=== PATIENT | male | born 1955 | race Caucasian/White ===

== ENCOUNTER 2019-08-28 11:13 | Outpatient (CLI) | payer OTHER, SELFPAY ==
--- NOTE | 2019-08-28 11:20 | CT_ITS ---
WS: [id number] CT CHEST, ABDOMEN AND PELVIS WITH CONTRAST. HISTORY: RECTAL CANCER TECHNIQUE: Contiguous 5 mm axial imaging performed through the chest, abdomen and pelvis with IV cont rast, oral contrast has been provided. Coronal and sagittal reformats chest. Coronal and sagittal ref ormats through the abdomen and pelvis. All CT scans at [facility] use at least one of the se dose optimization techniques: automated exposure control; mA and/or kV adjustment per patient size (includes targeted exams where dose is matched to clinical indication); or iterative reconstruction. CONTRAST: Omnipaque 300; 95 mL IV. DLP: 1508.0 mGy.cm COMPARISON: 04/03/[address]: Mild pulmonary hyperinflation. No pulmonary nodule or mass. No pericardial or pleural effus ion. Mild atherosclerosis aorta. No mediastinal or hilar adenopathy. Small hiatal hernia. Mild increa se in the thoracic kyphosis. No osteoblastic or osteolytic bone disease. Lipoma in the soft tissues o f the posterior upper LEFT thorax. Abdomen CT: Mild to moderate diffuse hepatic steatosis. No enhancing masses. No bile duct dilatation. Liver is slightly enlarged. Spleen, pancreas and adrenal glands are negative. Normally distended gal lbladder. No common bile duct dilatation. Kidneys are in normally enhancing. Extrarenal pelvis on the LEFT. Atherosclerosis aorta. No ascites or adenopathy. Row of surgical sutures in the central upper abdomen. There is additional postsurgical sutures in the distal small bowel and at the rectum. The ap pendix is not identified. No GI tract obstruction. Pelvic CT: No free fluid or adenopathy. Normally distended urinary bladder. No osteoblastic or osteolytic bone disease. CT/CT chest abd pel w con* IMPRESSION: 1. No evidence for metastatic disease to the chest, abdomen or pelvis. 2. Hepatic steatosis and hepatomegaly. 3. No pulmonary nodules. 4. Postsurgical changes in the central small bowel and RIGHT lower quadrant an d at the rectum are stable.
[2019-08-28] MEDS: iohexol 300 mg/mL 50 mL Btl IV (11:34)
[2019-08-28 12:11] LABS: Blood Urea Nitrogen 13 mg/dL (8-23); Glomerular Filtration Rate 84.7 mL/min (90-130)
[2019-08-28] MEDS: iohexol 300 mg/mL 100 mL Btl IV (13:00)
== END 2019-08-28 11:14 | disposition home or self-care (01) ==
LOC: RAD 11:16
PROVIDERS: PCP Nurse Practitioner Family; Visit Provider Internal Medicine Medical Oncology
DX: C20 Malignant neoplasm of rectum (principal); K76.0 Fatty (change of) liver, not elsewhere classified; R16.0 Hepatomegaly, not elsewhere classified
CPT/HCPCS: 36415; 71260; 74177; 82565; 84520

== ENCOUNTER 2019-09-11 08:53 | Outpatient (CLI) | payer OTHER, SELFPAY ==
--- NOTE | 2019-09-11 09:31 | ONC FU_ITS ---
Dr. Bro Patient Follow-Up Note Patient: Noman Morales Unit #: [id number]: [id number] Dicatated By: Rudy Bro M.D.Date of Visit:Sep 11, 2019 Onc Med Follow-up/Prog Note Chief Complaint: Rectal cancer. 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 He had presented with complaints of thinner bowel movements associated with intermittent blood in the stool. He underwent colonoscopy on 01/30/14 which showed a partially obstructing, medium sized, malignant appearing circumferential mass in the distal sigmoid/rectosigmoid colon. The proximal end of the tumor was estimated at about 17 cm and the distal end at 13-14 cm from the anal verge. Also noted were multiple sessile polyps from the mid transverse colon to the proximal descending colon. Some of these apparently were felt to have been only partially excised. Pathology of the rectosigmoid mass showed low grade (grade 1-2/4) adenocarcinoma. Pathology on the polyps included a benign polyp with slight adenomatous change, adenomatous polyp fragments, and a hyperplastic polyp. CT abdomen/pelvis showed wall thickening of the distal third sigmoid colon extending for a length of 8.8 cm with possible involvement of the rectosigmoid junction and supralevator rectum. There was no appreciable pericolonic or perirectal fat stranding, but there was a small nodule adjacent to the left distal sigmoid measuring 4.4 mm which was suspicious for a possible metastatic nodule. Also noted was a borderline enlarged cm hepatis lymph node measuring 10 mm. There was no other adenopathy noted. The left hepatic lobe showed a 4-5 mm low attenuation focus which was felt to be too small to characterize. At the time of my initial evaluation with him, there was uncertainty about the location of the lesion, specifically whether it was above or extended below the peritoneal reflection. He was referred to Dr. James Tavera in [place]. He underwent repeat colonoscopy with endorectal ultrasound staging on 02/27/14. As before, he was noted to have multiple polyps. A set of 5 polyps in the 4-6 mm size range were removed with cold exact dose snare from the transverse colon. A 30 x 15 mm sessile polyp in the descending colon at 55 cm was removed with a combination of hot snare and cold exact dose snare, and a 10 mm polyp was removed with hot snare from the descending colon at 45 cm. Pathology in all of these was consistent with adenomatous polyp. The rectal tumor was noted to extend to within 10 cm of the anal verge. By ultrasound it showed intubation into the perirectal fat consistent with T3 involvement. A single 10.4 mm ovoid hypoechoic lymph node versus tumor nodule was noted, consistent with node positive disease. Hence, his tumor was confirmed to be in the rectum and his clinical staging was T3, N1. He was the given neoadjuvant chemoradiation utilizing Xeloda for chemosensitization. The Xeloda was stopped during week 4 of his treatment due to multiple toxicities which included severe diarrhea and mucositis. He was able to continue radiation, and he completed treatment on 05/05/14 to a total dose of 5040 cGy. On 06/30/2014 he underwent low anterior resection with placement of diverting loop ileostomy and with incidental appendectomy. He was noted to have tumor partly above the peritoneal reflection, but extending down below the peritoneal reflection as well. Pathology showed residual tumor bed measuring 2.5 cm, but with only minimal residual adenocarcinoma. The grade was not able to be assessed. There did appear to be extension into pericolic soft tissue. There was involvement in 1 of 14 lymph nodes. Final staging was ypT3, ypN1a. He was then given postoperative adjuvant chemotherapy with modified FOLFOX. As of November 2014 he completed 8 cycles of treatment. He tolerated the chemotherapy pretty well, though he did require dose reductions in the 5-FU beginning with cycle 4 and he also required dose reductions in the oxaliplatin for neurotoxicity beginning with cycle 6. He has been followed on observation/expectant management following completion of the chemotherapy. His other medical illnesses have been limited to hypertension and GERD. He had previously smoked 2 packs of cigarettes daily, but he quit smoking approximately 2008. INTERIM HISTORY: He had a negative surveillance colonoscopy in 2015. Surveillance CT abdomen/pelvis on 07/22/2015 showed no acute abnormality. Surveillance CT scans on 03/30/2017 showed no evidence of metastatic disease in the chest, abdomen, or pelvis. He had surveillance colonoscopy again by Dr. Tavera in 2018. It reportedly was negative. He continued on observation/expectant management. Surveillance CT scans on 08/28/2019 showed mild pulmonary hyperinflation and mild hepatic steatosis and hepatomegaly. Postsurgical changes in the central small bowel and right lower quadrant and in the rectum appeared stable. There was no evidence for metastatic disease to the chest, abdomen, or pelvis. He is seen for a scheduled visit. He has been feeling pretty good generally, though he still has low energy. He is able to do light work. ECOG score is 1. His appetite has been good, and he has gained weight. Some of that may be attributable to decreased activity, as he has not been working. He has no fever or night sweats. He says his breathing is not the greatest. He still tends to get short of breath with activity. He has just occasional cough. He does not complain of chest pain. He has no GI or complaints other than occasional nausea. He has a little stiffness in his hands. He has no significant joint or bone pain. He still has some numbness/tingling in his feet, but not as bad. Medications: amLODIPine Besylate 1 Tablet (of 10 mg) Oral daily, [facility] Omeprazole 1 (20 mg) Tablet, enteric coated Oral daily, FLUoxetine HCl 1 (20 mg) Tablet Oral daily, Lisinopril-Hydrochlorothiazide 1 Tablet (of 20-12.5 mg) Oral b.i.d., Loperamide A-D Tablet Oral PRN, One Daily For Men 50+ Advanced 1 Tablet Oral daily Allergies: No Known Allergies. Review of Systems: Constitutional - He has been feeling good but his energy still low. He is able to do light work. His appetite is good and his weight is up about 17 pounds from last years visit. No fever, night sweats, or hot flashes. ECOG score is 1, ENMT - No sinus congestion/drainage. No mouth sores. No sore throat or difficulty swallowing, Hematologic/Lymphatic - He bruises easily, Respiratory - He gets short of breath with activity. No cough. No pleuritic pain or hemoptysis, Cardiovascular - No angina pain. No palpitations, Gastrointestinal - He has occasional nausea. No vomiting. No heartburn or acid reflux. No diarrhea or constipation. No blood in the stool or black stools, Genitourinary (M) - No dysuria or hematuria. No urinary frequency. No urgency or incontinence, Musculoskeletal - He has some joint stiffness, mainly in his hands, Integumentary - No skin complications, Neurologic - No headache or dizziness. He has some numbness and tingling in his feet, which is slightly better. No other focal neurologic symptoms, Psychiatric - No anxiety or depression. No insomnia. Vital Signs: Performed on Sep 11, 2019 09:10 Height - 72.00 in Weight - 220.4 lbs (HIGH) BSA - 2.22 sq.m BMI - 29.89 Temperature - 98.2 F (LOW) Pulse - 68 /min Respiration - 20 /min BP - 141/89 mm(hg) (HIGH) O2 Sat - 97 % Pain - 0 Physical Examination: Constitutional - He looks good generally, Eyes - Sclerae nonicteric. Conjunctivae clear, ENMT - No lesions noted in the oral cavity, Hematologic/Lymphatic - No cervical, clavicular, or axillary adenopathy, Respiratory - Lungs are clear with good air movement bilaterally, Cardiovascular - Heart rhythm is regular. There is no murmur, gallop, or rub noted, Abdomen - Soft. Liver and spleen are not enlarged. There is no abdominal mass or ascites noted and there is no inguinal adenopathy, Extremities - No edema. He has just a few scattered purpuric lesions, Neurologic - No focal neurologic deficits noted. Impression: 1. Patient with low-grade adenocarcinoma of the rectum, clinical stage IIIB ( T3, N1, M0) at initial diagnosis in January 2014. He also had multiple polyps in the transverse colon and decending colon which were removed endoscopically. 2. He was given chemoradiation utilizing Xeloda for chemosensitization. Xeloda was put on hold beginning with the 4th week of treatment due to multiple toxicities, including grade 3 diarrhea and mucositis. He was able to continue radiation, and he completed treatment on 05/05/14 to a total dose of 5040 cGy. 3. He underwent low anterior resection with placement of looped ileostomy on 06/30/14. He tolerated the procedure well. Pathology did show a significant response to the chemoradiation with only minimal residual viable cancer. However, it did appear to be a T3 lesion and there was involvement in 1 of 14 lymph nodes. Final stage was IIIB (ypT3, ypN1a, M0). 4. He was given postoperative adjuvant chemotherapy with 8 cycles of modified FOLFOX. It was administered without a 5-FU bolus. He completed chemotherapy in November 2014. He has since then been followed on observation. His other medical illnesses include: 5. Hypertension. 6. GERD. He continued to have problems with his bowel function following the chemoradiation and surgery. Management was problematic, because his symptoms were not very consistent. He had negative surveillance CT scans in March 2017 and he subsequently had a negative surveillance colonoscopy with Dr. Tavera. During further follow-up there was gradual improvement in his bowel symptoms and in his performance status. At this point appears to be doing well clinically. He is now close to 5 years following completion of treatment, thus far with no evidence of recurrence of the rectal cancer. Plan: He remains on observation/expectant management for the rectal cancer. He should continue to have a yearly follow-up visit with CBC, CMP, and CEA level. He will plan to do this with JAYLAN Altamirano. He does not require any further surveillance CT scans unless he is symptomatic. His surveillance colonoscopy can be continued at 5-year intervals. His next one would be due in 2022. I will plan to see him again only as needed. Signed By: Rudy Bro M.D. <<Signature on File>>
== END 2019-09-11 08:54 | disposition home or self-care (01) ==
LOC: ONCMED 08:56
PROVIDERS: PCP Nurse Practitioner Family; Visit Provider Internal Medicine Medical Oncology
DX: Z08 Encounter for follow-up examination after completed treatment for malignant neoplasm (principal); Z85.048 Personal history of other malignant neoplasm of rectum, rectosigmoid junction, and anus; I10 Essential (primary) hypertension; K21.9 Gastro-esophageal reflux disease without esophagitis; Z92.21 Personal history of antineoplastic chemotherapy; Z92.3 Personal history of irradiation; Z90.49 Acquired absence of other specified parts of digestive tract
CPT/HCPCS: G0463

== ENCOUNTER → 2022-12-22 08:14 | Outpatient (BNVA) | payer MEDICARE, SELFPAY | PROVIDERS: PCP Nurse Practitioner Family; Visit Provider Nurse Practitioner Family | DX: K21.9 Gastro-esophageal reflux disease without esophagitis (principal); I10 Essential (primary) hypertension; Z13.6 Encounter for screening for cardiovascular disorders; Z12.5 Encounter for screening for malignant neoplasm of prostate; Z79.899 Other long term (current) drug therapy | CPT/HCPCS: 80053; 80061; 81003; 82306; 83036; 84443; 85025; G0103 ==

== ENCOUNTER → 2024-03-31 16:33 | Outpatient (BNVA) | payer MEDICARE, SELFPAY | PROVIDERS: PCP Nurse Practitioner Family; Visit Provider Nurse Practitioner Family | DX: R00.1 Bradycardia, unspecified (principal); I10 Essential (primary) hypertension; E78.5 Hyperlipidemia, unspecified; Z79.899 Other long term (current) drug therapy; E55.9 Vitamin D deficiency, unspecified; Z12.5 Encounter for screening for malignant neoplasm of prostate | CPT/HCPCS: 80053; 80061; 82306; 83036; 84443; 85025; G0103 ==